=== PATIENT | female | born 1990 | race Caucasian/White ===

== ENCOUNTER → 2017-10-05 | Outpatient (CLI) | payer OTHER | END | disposition home or self-care (01) | LOC: PCVCIMAG 14:09 | DX: I10 Essential (primary) hypertension (principal); R01.1 Cardiac murmur, unspecified; R00.2 Palpitations; Z82.49 Family history of ischemic heart disease and other diseases of the circulatory system; Z79.899 Other long term (current) drug therapy | CPT/HCPCS: 80061; 93005; 93306 ==